=== PATIENT | male | born 1995 | race Caucasian/White ===

== ENCOUNTER 2019-03-02 22:28 | Emergency (ER) | payer BC ==
[2019-03-02 22:33] VITALS: BP 134/88; PULSE 88; TEMP 98.2; BMI 22.3
--- NOTE | 2019-03-02 22:45 | PDOC ---
History of Present Illness - General Chief Complaint: Rash Stated Complaint: RASH Time Seen by Provider: 03/02/19 22:43 History Source: Patient Exam Limitations: No Limitations - History of Present Illness Initial Comments: 03/02/19 22:46 This is a 24-year-old male who comes in complaining of a rash to his legs and abdominal area. Patient says the rash is itchy and denies any new contact as far as lotion creams or ointments however he does work out at a gym and said he uses a small insulin and poor and thinks maybe it was something in 1 of them. Patient has not taken anything for the itching. Patient denies any shortness of breath, or any other symptoms. Patient finished some amoxicillin approximately 3 days ago but otherwise denies any antibiotics. Allergies: as per nursing notes Past Medical History: none Social history: Lives with family. No smoking. No alcohol. No illicit drugs. Surgical history: None General: No fevers or chills, no weakness, no weight loss HEENT: No change in vision. No sore throat,. No ear pain CardioVascular: no chest discomfort. No shortness of breath Respiratory:No cough, or wheezing. Gastrointestinal: no nausea, vomiting, diarrhea or constipation, No rectal bleeding Genitourinary: No dysuria, hematuria, or frequency Musculoskeletal: No joint or muscle pain or swelling Neurologic: No headache, vertigo, dizziness or loss of consciousness Psychiatric: nor depression Skin: No rashes or easy bruising Endocrine: no increased thirst or abnormal weight change Allergic: Rash as per history of present illness All other systems reviewed and normal GENERAL: The patient is awake, alert, and fully oriented, in no acute distress. HEAD: Normal with no signs of trauma. EYES: Pupils equal, round and reactive to light, extraocular movements intact, sclera anicteric, conjunctiva clear. EXTREMITIES:atraumatic, Normal range of motion, no edema. NEUROLOGICAL: Normal speech, normal gait. PSYCH: Normal mood, normal affect. SKIN: Warm, Dry, normal turgor, there is a fine malar rash to the insides of the arms and trunk anteriorly. Otherwise no rash on back or other parts of the body. Assessment and plan: This is a 24-year-old male with a rash who comes in for evaluation. She appears to be consistent with a contact dermatitis type rash. 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 Past History - Past Medical History Allergies/Adverse Reactions: Allergies Allergy/AdvReac Type Severity Reaction Status Date / Time No Known Allergies Allergy Verified 03/02/19 22:30 Home Medications: Ambulatory Orders NK [No Known Home Medication] 03/02/19 COPD: No Other medical history: DENIES - Suicide/Smoking/Psychosocial Hx Smoking History: Never smoked Have you smoked in the past 12 months: No Information on smoking cessation initiated: No Hx Alcohol Use: No Drug/Substance Use Hx: No *Physical Exam - Vital Signs Last Vital Signs Temp Pulse Resp BP Pulse Ox 98.2 F 88 16 134/88 98 03/02/19 22:30 03/02/19 22:30 03/02/19 22:30 03/02/19 22:30 03/02/19 22:30 *DC/Admit/Observation/Transfer Diagnosis at time of Disposition: Dermatitis - Discharge Dispostion Disposition: HOME Condition at time of disposition: Stable Decision to Admit order: No - Referrals - Patient Instructions Additional Instructions: You can take Benadryl as often as every 4-6 hours as needed if itching and for the rash overReturn to the emergency department immediately with ANY new, persistent or worsening symptoms. Continue any medications as previously prescribed by your physician. You should follow up with your primary doctor as soon as possible regarding today's emergency department visit. . Please make sure your doctor reviews the results of your emergency evaluation. Thank you for coming to the Emergency Department today for your care. It was a pleasure to see you today. Please note that your evaluation is INCOMPLETE until you follow-up with your doctor. . - Post Discharge Activity
[2019-03-02] MEDS ORDERED: diphenhydrAMINE HCL 50 MG CAPSULE PO ONE (22:50)
[2019-03-02] MEDS ORDERED: diphenhydrAMINE HCL 25 MG CAPSULE (FP) PO ONE (22:50)
== END 2019-03-02 22:55 | disposition home or self-care (01) ==
LOC: FER 22:28
DX: R21 Rash and other nonspecific skin eruption (principal)
CPT/HCPCS: 99281-25

== ENCOUNTER 2024-01-15 13:06 | Emergency (ER) | payer BC, OTHER ==
[2024-01-15 13:15] VITALS: BP 118/74; PULSE 71; RESP 17; TEMP 98.3; BMI 24.3
[2024-01-15] MEDS ORDERED: ACETAMINOPHEN 500 MG TABLET (FP) ONE (13:57)
[2024-01-15] MEDS ORDERED: DEXAMETHASONE SOD PHOSPHATE 10 MG/1 ML VIAL ONE (13:57)
[2024-01-15] MEDS ORDERED: KETOROLAC TROMETHAMINE 30 MG/1 ML VIAL ONE (13:57)
[2024-01-15] MEDS ORDERED: METHOCARBAMOL 500 MG TABLET ONE (13:57)
[2024-01-15] MEDS: METHOCARBAMOL 750 MG TABLET PO ONE (14:11)
[2024-01-15] MEDS: KETOROLAC TROMETHAMINE 30 MG/1 ML VIAL IM ONE (14:11)
[2024-01-15] MEDS: DEXAMETHASONE SOD PHOSPHATE 10 MG/1 ML VIAL IM ONE (14:11)
[2024-01-15] MEDS: ACETAMINOPHEN 500 MG TABLET (FP) PO ONE (14:12)
== END 2024-01-15 16:39 | disposition home or self-care (01) ==
LOC: JERFT 13:06
PROC: 3E023GC Introduction of Other Therapeutic Substance into Muscle, Percutaneous Approach (ICD-10-PCS; principal; 2024-01-15)
PROC: 3E0133Z Introduction of Anti-inflammatory into Subcutaneous Tissue, Percutaneous Approach (ICD-10-PCS; 2024-01-15)
DX: M54.50 Low back pain, unspecified (principal); X50.0XXA Overexertion from strenuous movement or load, initial encounter
CPT/HCPCS: 72100-TC-FY; 99284-25; J1100